=== PATIENT | female | born 1990 | race African-American/Black ===

== ENCOUNTER 2022-09-04 04:17 | Emergency (ER) | payer MEDICAID ==
--- NOTE | 2022-09-04 04:25 | ED Abdominal Pain ---
General Stated Complaint: 10 WKS & 6 DAYS PREG,PAIN ON RT SIDE Source of Information: Patient Exam Limitations: No Limitations (LAUREN CHRISTENSEN DO) History of Present Illness Date Seen by Provider: Sep 04, 2022 Time Seen by Provider: 04:25 (LAUREN CHRISTENSEN DO) Allergies and Home Medications Allergies Coded Allergies: No Known Drug Allergies (Unverified , 09/15/22) Patient Home Medication List Cephalexin (Cephalexin) 500 Mg Tablet, 500 MG PO QID Prescribed by: Kwame Rick on 10/06/22 1458 Physical Exam Vital Signs Capillary Refill : (LAUREN CHRISTENSEN DO) Height/Weight/BMI Height: '" Weight: lbs. oz. kg; BMI Method: (LAUREN CHRISTENSEN DO) Departure Departure-Patient Inst. Referrals: CHAY ROBLES MD (PCP/Family) Primary Care Physician LAUREN CHRISTENSEN DO Sep 04, 2022 04:25 Oct 07, 2022 13:32
== END 2022-09-04 04:26 | disposition left against medical advice (07) ==
LOC: ER 04:21
DX: O26.891 Other specified pregnancy related conditions, first trimester (principal); Z3A.11 11 weeks gestation of pregnancy

== ENCOUNTER 2022-09-15 10:34 | Emergency (ER) | payer MEDICAID ==
--- NOTE | 2022-09-15 10:54 | ED General ---
General Chief Complaint: General Problems/Pain Stated Complaint: BODYACHES/RT SIDE ABD PAIN/SORE THROAT 11WKS PREG Nursing Triage Note: pt to ed with c/o not feeling well for 3 days, states she just broke a fever, body aches, intermittent RLQ abd pain. states she is 11 wks Source of Information: Patient Exam Limitations: No Limitations History of Present Illness Date Seen by Provider: Sep 15, 2022 Time Seen by Provider: 10:43 Initial Comments 31-year-old female currently 11 weeks presents emerged department today for right lower abdominal pain. The abdominal pain has been present for about 2 weeks off and on. Is sharp stabbing and intermittent in nature. It las ts about 3 to 4 minutes when present and spontaneously resolves. No vaginal symptoms to include discharge odor or bleeding. She denies any urinary symptoms or changes in bowels. She is most concerned about some body aches that she has been having. She states she has had body aches for about 3 days and generally felt unwell. She thinks she had fevers yesterday that broke. She denies any runny nose cough sore throat. No known sick contacts Allergies and Home Medications Allergies Coded Allergies: No Known Drug Allergies (Unverified , 09/15/22) Patient Home Medication List Home Medication List Reviewed: Yes Review of Systems Review of Systems Constitutional: fever EENTM: no symptoms reported Respiratory: cough Cardiovascular: no symptoms reported Gastrointestinal: abdominal pain Genitourinary: no symptoms reported Expected Date of Delivery: Apr 04, 2023 Musculoskeletal: other (Body aches) Skin: no symptoms reported Psychiatric/Neurological: No Symptoms Reported Hematologic/Lymphatic: No Symptoms Reported Immunological/Allergic: no symptoms reported Past Chbsetd-Vxicwb-Ehhrzf Hx Patient Social History Tobacco Use?: No Use of E-Cig and/or Vaping dev: No Substance use?: No Alcohol Use?: No Past Medical History Expected Date of Delivery: Apr 04, 2023 Last Menstrual Period: Jun 28, 2022 Family Medical History Reviewed Nursing Family Hx No Pertinent Family Hx Physical Exam Vital Signs Vital Signs - First Documented 09/15/22 10:40 Temp 36.7 Pulse 78 Resp 20 B/P (MAP) 109/52 (71) Pulse Ox 100 Capillary Refill : Height, Weight, BMI Height: '" Weight: lbs. oz. kg; BMI Method: General Appearance: No Apparent Distress, WD/WN HEENT: Normal ENT Inspection, Pharynx Normal, Other (Right eye chronically hazy) Neck: Full Range of Motion, Normal Inspection, Non Tender, Supple Respiratory: Chest Non Tender, Lungs Clear, Normal Breath Sounds, No Accessory Muscle Use, No Respiratory Distress Cardiovascular: Regular Rate, Rhythm, No Edema, No Gallop, No JVD, No Murmur, Normal Peripheral Pulses Gastrointestinal: Normal Bowel Sounds, No Organomegaly, No Pulsatile Mass, Soft, Tenderness (Mild tenderness throughout her abdomen without any rebound or guarding. No mass organomegaly. No skin changes. Appropriate for gravid age.) Back: Normal Inspection, No Vertebral Tenderness Extremity: Normal Capillary Refill, Normal Inspection, Normal Range of Motion, Non Tender, No Calf Tenderness Neurologic/Psychiatric: Alert, Oriented x3, Normal Mood/Affect Skin: Normal Color, Warm/Dry Lymphatic: No Adenopathy Progress/Results/Core Measures Suspected Sepsis SIRS Temperature: Pulse: 78 Respiratory Rate: 20 Laboratory Tests 09/15/22 11:09: White Blood Count 8.2 Blood Pressure 109 /52 Mean: 71 Laboratory Tests 09/15/22 11:09: Creatinine 0.56L, Platelet Count 228, Total Bilirubin 0.2 Results/Orders Lab Results Laboratory Tests Test 09/15/22 11:09 09/15/22 11:46 Range/Units White Blood Count 8.2 4.3-11.0 10^3/uL Red Blood Count 4.02 3.80-5.11 10^6/uL Hemoglobin 12.7 11.5-16.0 g/dL Hematocrit 35 35-52 % Mean Corpuscular Volume 88 80-99 fL Mean Corpuscular Hemoglobin 32 25-34 pg Mean Corpuscular Hemoglobin Concent 36 32-36 g/dL Red Cell Distribution Width 13.0 10.0-14.5 % Platelet Count 228 130-400 10^3/uL Mean Platelet Volume 10.4 9.0-12.2 fL Immature Granulocyte % (Auto) 1 % Neutrophils (%) (Auto) 65 42-75 % Lymphocytes (%) (Auto) 26 12-44 % Monocytes (%) (Auto) 7 0-12 % Eosinophils (%) (Auto) 1 0-10 % Basophils (%) (Auto) 0 0-10 % Neutrophils # (Auto) 5.3 1.8-7.8 10^3/uL Lymphocytes # (Auto) 2.1 1.0-4.0 10^3/uL Monocytes # (Auto) 0.6 0.0-1.0 10^3/uL Eosinophils # (Auto) 0.1 0.0-0.3 10^3/uL Basophils # (Auto) 0.0 0.0-0.1 10^3/uL Immature Granulocyte # (Auto) 0.1 0.0-0.1 10^3/uL Sodium Level 137 135-145 MMOL/L Potassium Level 3.5 L 3.6-5.0 MMOL/L Chloride Level 105 98-107 MMOL/L Carbon Dioxide Level 19 L 21-32 MMOL/L Anion Gap 13 5-14 MMOL/L Blood Urea Nitrogen 4 L 7-18 MG/DL Creatinine 0.56 L 0.60-1.30 MG/DL Estimat Glomerular Filtration Rate 125 BUN/Creatinine Ratio 7 Glucose Level 94 70-105 MG/DL Calcium Level 8.8 8.5-10.1 MG/DL Corrected Calcium 9.1 8.5-10.1 MG/DL Total Bilirubin 0.2 0.1-1.0 MG/DL Aspartate Amino Transf (AST/SGOT) 10 5-34 U/L Alanine Aminotransferase (ALT/SGPT) 12 0-55 U/L Alkaline Phosphatase 35 L 40-136 U/L Total Protein 6.6 6.4-8.2 GM/DL Albumin 3.6 3.2-4.5 GM/DL Human Chorionic Gonadotropin, Quant [id number] H <5 MIU/ML Influenza Type A (RT-PCR) Not Detected Not Detecte Influenza Type B (RT-PCR) Not Detected Not Detecte SARS-CoV-2 RNA (RT-PCR) Not Detected Not Detecte Urine Color YELLOW Urine Clarity CLEAR Urine pH 8.0 5-9 Urine Specific [place] 1.020 1.016-1.022 Urine Protein NEGATIVE NEGATIVE Urine Glucose (UA) NEGATIVE NEGATIVE Urine Ketones NEGATIVE NEGATIVE Urine Nitrite NEGATIVE NEGATIVE Urine Bilirubin NEGATIVE NEGATIVE Urine Urobilinogen 0.2 < = 1.0 MG/DL Urine Leukocyte Esterase NEGATIVE NEGATIVE Urine RBC (Auto) NEGATIVE NEGATIVE Urine RBC NONE /HPF Urine WBC NONE /HPF Urine Squamous Epithelial Cells 2-5 /HPF Urine Crystals PRESENT H /LPF Urine Amorphous Sediment LARGE JASON PHOSPHATE H /LPF Urine Bacteria NEGATIVE /HPF Urine Casts NONE /LPF Urine Mucus NEGATIVE /LPF Urine Culture Indicated NO My Orders Orders - AMPAROLAUREN Knowles DO Comprehensive Metabolic Panel (09/15/22 10:49) Covid 19 Inhouse Test (09/15/22 10:49) Cbc With Automated Diff (09/15/22 10:49) Influenza A And B By Pcr (09/15/22 10:49) Hcg,Quantitative (09/15/22 10:49) Ua Culture If Indicated (09/15/22 10:49) Vital Signs/I&O 09/15/22 10:40 Temp 36.7 Pulse 78 Resp 20 B/P (MAP) 109/52 (71) Pulse Ox 100 Capillary Refill : Blood Pressure Mean: 71 Departure Communication (Admissions) Patient is hemodynamically stable with a nonsurgical abdominal exam. Her pain has been off and on for the last several months. She is nontoxic in appearance with normal white blood cell count, afebrile. She has a nonsurgical abdominal exam. Very low likelihood that this is appendicitis at this time. Given the fact that she is we will not pursue further imaging given the low likelihood. This does not seem to be coming from her . She has seen her OB provider and discussed current symptoms with them as well and they agree that this is likely not related. She subsequently developed diffuse body aches recently, likely viral syndrome of some sort. Advised her to continue Tylenol, increase fluids and rest. Given strict return precautions and discharged in stable condition. Questions were sought and answered. Impression Primary Impression: Abdominal pain Qualified Codes: R10.30 - Lower abdominal pain, unspecified Additional Impression: Qualified Codes: Z3A.11 - 11 weeks gestation of Disposition: 01 HOME, SELF-CARE Condition: Stable Departure-Patient Inst. Referrals: CHAY ROBLES MD (PCP/Family) Primary Care Physician Patient Instructions: Abdominal Pain, Adult ED Add. Discharge Instructions: As discussed abdominal pain appears more chronic in nature. It does not appear to be coming from her current . I believe you have a viral syndrome which is causing your diffuse body aches. Use Tylenol as needed for these types of pains. Unfortunate during there is not much else she can take this type of pain. I recommend you follow-up with your OB provider for ultrasound as previously scheduled. Return to the emergency department for any vaginal bleeding, severe pain or if your symptoms change in any way concerning to you. Follow-up with your primary doctor in the next 2 to 3 days should your symptoms persist. All discharge instructions reviewed with patient and/or family. Voiced understa nding. Work/School Note: Work Release Form Date Seen in the Emergency Department: Sep 15, 2022 Return to Work: Sep 15, 2022 Restrictions: No Restrictions LAUREN CHRISTENSEN DO Sep 15, 2022 10:54
[2022-09-15 11:22] LABS: BASOPHILS % (AUTO) 0 % (0-10); EOSINOPHILS # (AUTO) 0.1 10^3/uL (0.0-0.3); EOSINOPHILS % (AUTO) 1 % (0-10); HEMATOCRIT 35 % (35-52); HEMOGLOBIN 12.7 g/dL (11.5-16.0); LYMPHOCYTES # (AUTO) 2.1 10^3/uL (1.0-4.0); LYMPHOCYTES % (AUTO) 26 % (12-44); MEAN CORPUSCULAR HEMOGLOBIN 32 pg (25-34); MEAN CORPUSCULAR HGB CONC 36 g/dL (32-36); MEAN CORPUSCULAR VOLUME 88 fL (80-99); MEAN PLATELET VOLUME 10.4 fL (9.0-12.2); MONOCYTES # (AUTO) 0.6 10^3/uL (0.0-1.0); MONOCYTES % (AUTO) 7 % (0-12); NEUTROPHILS # (AUTO) 5.3 10^3/uL (1.8-7.8); NEUTROPHILS % (AUTO) 65 % (42-75); PLATELET COUNT 228 10^3/uL (130-400); WHITE BLOOD COUNT 8.2 10^3/uL (4.3-11.0)
[2022-09-15 11:33] LABS: ALBUMIN 3.6 GM/DL (3.2-4.5); POTASSIUM 3.5 MMOL/L (3.6-5.0)
[2022-09-15 11:34] LABS: CALCIUM 8.8 MG/DL (8.5-10.1)
[2022-09-15 11:36] LABS: TOTAL PROTEIN 6.6 GM/DL (6.4-8.2)
[2022-09-15 11:37] LABS: BILIRUBIN,TOTAL 0.2 MG/DL (0.1-1.0)
[2022-09-15 11:39] LABS: CREATININE SERUM 0.56 MG/DL (0.60-1.30)
[2022-09-15 11:54] LABS: BILIRUBIN,URINE NEGATIVE (NEGATIVE); CLARITY,URINE CLEAR; COLOR,URINE YELLOW; GLUCOSE, URINE (UA) NEGATIVE (NEGATIVE); KETONES,URINE NEGATIVE (NEGATIVE); LEUKOCYTE ESTERASE ,URINE NEGATIVE (NEGATIVE); NITRITE,URINE NEGATIVE (NEGATIVE); PROTEIN,URINE NEGATIVE (NEGATIVE)
[2022-09-15 12:01] LABS: AMORPHOUS SEDIMENT,UR LARGE AMOR PHOSPHATE /LPF; BACTERIA,URINE NEGATIVE /HPF
[2022-09-15 12:20] VITALS: BP 109/52
== END 2022-09-15 12:21 | disposition home or self-care (01) ==
LOC: EDUNIT# 10:34 → ER 10:37
DX: O26.891 Other specified pregnancy related conditions, first trimester (principal); R10.31 Right lower quadrant pain; M79.10 Myalgia, unspecified site; Z3A.11 11 weeks gestation of pregnancy; Z28.310 Unvaccinated for COVID-19; Z20.822 Contact with and (suspected) exposure to COVID-19
CPT/HCPCS: 36415; 80053; 81000; 84702; 85025; 87636

== ENCOUNTER 2022-10-06 13:12 | Emergency (ER) | payer MEDICAID ==
[~2022-10-06] VITALS: Ht 170 cm; Wt 70.0 kg
--- NOTE | 2022-10-06 13:51 | ED GU-Female ---
General Chief Complaint: OB < 20 WEEKS Stated Complaint: VAG BLEEDING 14 WKS PREG Nursing Triage Note: PT STATES 14 WEEKS AND STARTED BLEEDING FRIDAY, GETTING WORSE. G-3, P-2 Source: patient Exam Limitations: no limitations History of Present Illness Date Seen by Provider: Oct 06, 2022 Time Seen by Provider: 13:50 Initial Comments Patient is a 31-year-old G3, P2 female who presents to the emergency department for evaluation of vaginal bleeding that began in the context of being 14 weeks . Patient states she called her [employer] on and it was told to begin bedrest. She states she had no vaginal bleeding yesterday but she was up a little more than she had been cooking for her children when she felt a "gushing sensation" and noticed that she had passed some blood from her vagina. She denies any lower abdominal cramping. Denies any fever. Denies any urinary symptomology. Allergies and Home Medications Allergies Coded Allergies: No Known Drug Allergies (Unverified , 09/15/22) Patient Home Medication List Home Medication List Reviewed: Yes Cephalexin (Cephalexin) 500 Mg Tablet, 500 MG PO QID Prescribed by: Carlos Rick on 10/06/22 1458 Review of Systems Review of Systems Constitutional: no symptoms reported EENTM: no symptoms reported Respiratory: no symptoms reported Cardiovascular: no symptoms reported Gastrointestinal: no symptoms reported Genitourinary: see HPI Expected Date of Delivery: Apr 04, 2023 Musculoskeletal: no symptoms reported Skin: no symptoms reported Psychiatric/Neurological: No Symptoms Reported Endocrine: No Symptoms Reported Hematologic/Lymphatic: No Symptoms Reported Past Ffgpgxn-Yckaly-Taocol Hx Patient Social History Tobacco Use?: Yes Smoking Status: Former Smoker Substance use?: No Alcohol Use?: No Past Medical History Surgery/Hospitalization HX: ASTHMA Expected Date of Delivery: Apr 04, 2023 Family Medical History No Pertinent Family Hx Physical Exam Vital Signs Vital Signs - First Documented 10/06/22 13:20 Temp 37.1 Pulse 84 Resp 20 B/P (MAP) 136/95 (109) Pulse Ox 99 O2 Delivery Room Air Capillary Refill : Less Than 3 Seconds Height, Weight, BMI Height: '" Weight: lbs. oz. kg; 24.00 BMI Method: General Appearance: WD/WN, no apparent distress HEENT: PERRL/EOMI, normal ENT inspection, TMs normal, pharynx normal Neck: non-tender, full range of motion Cardiovascular: regular rate, rhythm Respiratory: chest non-tender, lungs clear, normal breath sounds Gastrointestinal: normal bowel sounds, non tender, soft Neurologic/Psychiatric: no motor/sensory deficits, alert, normal mood/affect, oriented x 3 Skin: normal color, warm/dry Progress/Results/Core Measures Suspected Sepsis SIRS Temperature: Pulse: 84 Respiratory Rate: 20 Blood Pressure 136 /95 Mean: 109 Results/Orders Lab Results Laboratory Tests Test 10/06/22 13:58 10/06/22 14:00 Range/Units Human Chorionic Gonadotropin, Quant [id number] H <5 MIU/ML Urine Color YELLOW Urine Clarity CLOUDY Urine pH 7.0 5-9 Urine Specific [place] 1.025 H 1.016-1.022 Urine Protein 2+ H NEGATIVE Urine Glucose (UA) NEGATIVE NEGATIVE Urine Ketones 1+ H NEGATIVE Urine Nitrite NEGATIVE NEGATIVE Urine Bilirubin 1+ H NEGATIVE Urine Urobilinogen 1.0 < = 1.0 MG/DL Urine Leukocyte Esterase TRACE H NEGATIVE Urine RBC (Auto) 3+ H NEGATIVE Urine RBC 0-2 /HPF Urine WBC 2-5 /HPF Urine Squamous Epithelial Cells 5-10 /HPF Urine Renal Epithelial Cells NONE /HPF Urine Crystals NONE /LPF Urine Bacteria LARGE H /HPF Urine Casts NONE /LPF Urine Mucus LARGE H /LPF Urine Culture Indicated YES My Orders Orders - CARLOS RICK APRN Hcg,Quantitative (10/06/22 13:40) Ua Culture If Indicated (10/06/22 13:40) Heart Tones (10/06/22 13:41) Urine Culture (10/06/22 14:00) Vital Signs/I&O 10/06/22 10/06/22 13:20 15:02 Temp 37.1 Pulse 84 80 Resp 20 16 B/P (MAP) 136/95 (109) 127/86 Pulse Ox 99 98 O2 Delivery Room Air Room Air Capillary Refill : Less Than 3 Seconds Blood Pressure Mean: 109 Progress Note : Progress Note Patient is nontoxic and well-hydrated on exam. No abdominal tenderness to palpation noted. Vital signs are reassuring. heart tones were obtained and within normal limits. Quantitative hCG within expected limits for this point of . Urinalysis notable for bacteriuria. Although patient is asymptomatic we will treat her given she is . Patient was given a prescription for antibiotics. Discussed importance of close follow-up with [employer]. She states she has an appointment with them on Friday. Return precautions for urgent symptomology discussed. Patient verbalized understanding. Departure Impression Primary Impression: Vaginal bleeding in patient at less than 20 weeks gestation Additional Impression: Asymptomatic bacteriuria during Disposition: HOME, SELF-CARE Condition: Stable Departure-Patient Inst. Decision time for Depature: 14:55 Referrals: CHAY ROBLES MD (PCP/Family) Primary Care Physician Patient Instructions: Bleeding in Early ED Scripts Cephalexin (Cephalexin) 500 Mg Tablet 500 MG PO QID for 5 Days, #20 TAB 0 Refills Prov: CARLOS RICK APRN 10/06/22 CARLOS RICK APRN Oct 06, 2022 13:51
[2022-10-06 14:17] LABS: BILIRUBIN,URINE 1+ (NEGATIVE); CLARITY,URINE CLOUDY; COLOR,URINE YELLOW; GLUCOSE, URINE (UA) NEGATIVE (NEGATIVE); KETONES,URINE 1+ (NEGATIVE); LEUKOCYTE ESTERASE ,URINE TRACE (NEGATIVE); NITRITE,URINE NEGATIVE (NEGATIVE); PROTEIN,URINE 2+ (NEGATIVE)
[2022-10-06 14:24] LABS: BACTERIA,URINE LARGE /HPF; RBC,URINE 0-2 /HPF
[2022-10-06] MEDS ORDERED: CEPH500T PO (14:58)
[2022-10-06 15:02] VITALS: BP 127/86
== END 2022-10-06 15:02 | disposition home or self-care (01) ==
LOC: EDUNIT# 13:12 → ER 13:15
DX: O20.9 Hemorrhage in early pregnancy, unspecified (principal); O26.892 Other specified pregnancy related conditions, second trimester; R82.71 Bacteriuria; Z3A.14 14 weeks gestation of pregnancy; Z87.891 Personal history of nicotine dependence; Z28.310 Unvaccinated for COVID-19
CPT/HCPCS: 36415; 81000; 84702; 87088

== ENCOUNTER 2022-12-04 10:44 | Outpatient (CLI) | payer MEDICAID ==
[~2022-12-04] VITALS: Ht 170.2 cm; Wt 80.2 kg
[~2022-12-04 10:44] MED LIST: CEPH500T PO
[2022-12-04 11:07] VITALS: BP 112/55
[2022-12-04 11:20] LABS: BILIRUBIN,URINE NEGATIVE (NEGATIVE); CLARITY,URINE CLEAR; COLOR,URINE YELLOW; GLUCOSE, URINE (UA) NEGATIVE (NEGATIVE); KETONES,URINE NEGATIVE (NEGATIVE); LEUKOCYTE ESTERASE ,URINE NEGATIVE (NEGATIVE); NITRITE,URINE NEGATIVE (NEGATIVE); PROTEIN,URINE NEGATIVE (NEGATIVE)
[2022-12-04 11:31] LABS: BACTERIA,URINE NEGATIVE /HPF; WBC,URINE RARE /HPF
[2022-12-04] MEDS ORDERED: LACTATED RINGERS 1,000 ML IV SCH (11:45)
[2022-12-04 12:20] LABS: BASOPHILS # (AUTO) 0.1 10^3/uL (0.0-0.1); BASOPHILS % (AUTO) 1 % (0-10); EOSINOPHILS # (AUTO) 0.1 10^3/uL (0.0-0.3); EOSINOPHILS % (AUTO) 1 % (0-10); HEMATOCRIT 36 % (35-52); HEMOGLOBIN 12.4 g/dL (11.5-16.0); LYMPHOCYTES # (AUTO) 2.2 10^3/uL (1.0-4.0); LYMPHOCYTES % (AUTO) 19 % (12-44); MEAN CORPUSCULAR HEMOGLOBIN 30 pg (25-34); MEAN CORPUSCULAR HGB CONC 35 g/dL (32-36); MEAN CORPUSCULAR VOLUME 88 fL (80-99); MEAN PLATELET VOLUME 10.2 fL (9.0-12.2); MONOCYTES # (AUTO) 0.7 10^3/uL (0.0-1.0); MONOCYTES % (AUTO) 6 % (0-12); NEUTROPHILS # (AUTO) 8.1 10^3/uL (1.8-7.8); NEUTROPHILS % (AUTO) 70 % (42-75); PLATELET COUNT 254 10^3/uL (130-400); WHITE BLOOD COUNT 11.6 10^3/uL (4.3-11.0)
[2022-12-04 12:33] LABS: ALBUMIN 3.4 GM/DL (3.2-4.5); BILIRUBIN,TOTAL 0.2 MG/DL (0.1-1.0); CALCIUM 8.6 MG/DL (8.5-10.1); CREATININE SERUM 0.53 MG/DL (0.60-1.30); POTASSIUM 3.7 MMOL/L (3.6-5.0); TOTAL PROTEIN 6.7 GM/DL (6.4-8.2)
[2022-12-04 14:30] VITALS: BP 119/65
[2022-12-04 14:40] VITALS: BP 119/65
[2022-12-04] MEDS ORDERED: ONDANSETRON 4 MG/2 ML (SDV) Z0FRAN IVP PRN (15:00)
--- NOTE | 2022-12-05 08:08 | Physician Query-Final Dx ---
MAMTA,12/05/22 0808: Clinic Account Progress/Dx Physician Query: Please give diagnosis Please include # weeks gestation Date of Service Dec 04, 2022 at 10:44 PRADIP PURVIS MD 12/05/22 2004: Clinic Account Progress/Dx DIAGNOSIS: Diagnosis: (1) 22 weeks gestation of Diagnosis Nausea and vomiting second trimester, suspected viral gastroenteritis. Improved with IVF, labs reassuring with exception of slightly low glucose, but patient tolerating oral and eating at time of d/c. MAMTA,NovDec 05, 2022 08:08 PRADIP PURVIS MD Dec 05, 2022 20:04
== END 2022-12-04 15:05 ==
LOC: LDRP 10:44 → WSo 10:44
PROVIDERS: ATTEND Family Medicine
DX: O21.9 Vomiting of pregnancy, unspecified (principal); Z3A.22 22 weeks gestation of pregnancy
CPT/HCPCS: 36415; 80053; 81000; 85025

== ENCOUNTER 2023-03-28 13:18 | Outpatient (CLI) | payer MEDICAID ==
[~2023-03-28] VITALS: Ht 170.2 cm; Wt 83.9 kg
[2023-03-28 13:29] VITALS: BP 127/62
[2023-03-28 14:02] LABS: BILIRUBIN,URINE NEGATIVE (NEGATIVE); CLARITY,URINE CLEAR; COLOR,URINE YELLOW; GLUCOSE, URINE (UA) NEGATIVE (NEGATIVE); KETONES,URINE NEGATIVE (NEGATIVE); LEUKOCYTE ESTERASE ,URINE NEGATIVE (NEGATIVE); NITRITE,URINE NEGATIVE (NEGATIVE); PH,URINE 7.5 (5-9); PROTEIN,URINE 2+ (NEGATIVE)
[2023-03-28 14:24] LABS: BACTERIA,URINE TRACE /HPF; RBC,URINE 0-2 /HPF; WBC,URINE 0-2 /HPF
[2023-03-28] MEDS ORDERED: ACETAMINOPHEN 500 MG TAB (TYLENOL) PO ONE (16:45)
[2023-03-28] MEDS ORDERED: ACETAMINOPHEN 500 MG TAB (TYLENOL) ONE (16:46)
[2023-03-28 16:50] VITALS: BP 122/73
== END 2023-03-28 18:40 | disposition home or self-care (01) ==
LOC: LDRP 13:18 → WSo 13:18 → LDRP 13:27 → WSo 18:40
PROVIDERS: ATTEND Family Medicine
DX: O62.9 Abnormality of forces of labor, unspecified (principal); Z3A.00 Weeks of gestation of pregnancy not specified
CPT/HCPCS: 81000

== ENCOUNTER 2023-03-29 06:12 | Inpatient (IN) | payer MEDICAID ==
[2023-03-29] VITALS (9 sets, daily range): BP systolic 117–147; BP diastolic 67–95
[~2023-03-29] VITALS: Ht 170.2 cm; Wt 83.9 kg
--- NOTE | 2023-03-29 06:39 | History & Physical-OB ---
OB - Chief Complaint & HPI Date/Time Date of Admission: Date of Admission: March 29, 2023 at 06:12 Date seen by a Provider: March 29, 2023 Time Seen by a Provider: 06:20 Chief Complaint/History OB-Reason for Admission/Chief: Onset of Labor Expected Date of Delivery: Apr 04, 2023 Gestational Age in Weeks: 39 Gestational Age in Days: 1 Admission Nurse Assessment Rev: Yes History of Labs GBS positive Other delivery occurred at home. according to mother was in the sac without rupture. Once delivered the sac ruptured and spontaneous cry. Allergies and Home Medications Allergies Coded Allergies: No Known Drug Allergies (Unverified , 09/15/22) Patient Home Medication List Home Medication List Reviewed: Yes No Active Prescriptions or Reported Meds OB - History Hx of Present Care: Yes Ultrasounds: Normal mid trimester US Obstetrical Complications: None Medical Complications: None Patient Past Medical History no chronic medical problems Social History/Family History 2nd Hand Smoke Exposure: No OB - Admission Exam Physical Exam HEENT: Moist Membranes Heart: Rhythm Normal Lungs: Clear Abdomen: Gravid OB - Assessment/Plan/Diagnosis Assessment Assessment: active labor (at 39 weeks now delivered), group B positive strep Admission Dx 1. IUP at term 39 weeks. 2. Perineum GBS positive at 36 week check Admission Status: Inpatient Order (span 2 midnights) Reason for Inpatient Admission: Delivery of placenta and further obstetrical care CHAY ROBLES MD March 29, 2023 06:39
--- NOTE | 2023-03-29 06:43 | OB Labor & Delivery Record ---
L&D History Date of Service Date of Service: March 29, 2023 History Expected Date of Delivery: Apr 04, 2023 Gestational Age in Weeks: 39 Hx : 3 Hx Para: 3 Complications Events: Routine care Operative Indications (Cesarea: N/A-Vaginal Delivery Intrapartal Events: Precipitous Labor < 3 hrs Other Complications GBS positive at 36 weeks but was unable to receive antibiotics due to rapid delivery L&D Stage1 Stage One Onset of Labor - Date: March 29, 2023 Onset of Labor - Time: 20:00 Monitors and Tracing Presentation: Vertex Signs of Distress by FHT Signs of Distress no Rupture of Membranes Amniotic Membrane Rupture Time: 05:53 Amniotic Membrane Fluid Desc.: Clear Induction/Anesthesia Medications none L&D Stage2 Stage Two Stage II Date: March 29, 2023 Stage II Time: 05:54 Monitors and Tracing Monitor Mode: None Presentation: Vertex Cord Descript/Complications Cord Vessel Description: 3 Vessels Delivery Type Delivery Method: Spontaneous Vaginal Episiotomy/Perineal Laceration Laceraction(s)/Extensions: No Condition of Infant Condition of Condition of : Living Exam: No Observed Abnormalities Resuscitation Resuscitation: N/A - Spontaneous Resp L&D Stage3 Stage Three Stage III Date: March 29, 2023 Stage III Time: 06:20 Pictocin Pitocin Administration Comment: No Pitocin required Placenta Delivery Placenta Delivery: Spontaneous Delivery Summary Summary Estimated blood loss (mL): 150 Condition of Delivery Examined: Cervix Examined Post Hemorrhage: No Intervention Required none CHAY ROBLES MD March 29, 2023 06:43
[2023-03-29] MEDS ORDERED: NALOXONE 0.4 MG/ML 1 ML (NARCAN) VIAL IV PRN (07:00)
[2023-03-29] MEDS ORDERED: BENZOCAINE/MENTHOL (DERMOPLAST) 56 ML CAN TP PRN (07:00)
[2023-03-29] MEDS ORDERED: TETANUS,DIPTH,PERTUSS P/F (BOOSTRIX) 0.5 ML VIAL IM ONE (07:00)
[2023-03-29] MEDS ORDERED: MEASLES,MUMPS,RUBELLA 1 EA INJ SQ ONE (07:00)
[2023-03-29] MEDS ORDERED: WITCH HAZEL(TUCKS) 40 EA JAR TOP PRN (07:00)
[2023-03-29] MEDS: IBUPROFEN 600 MG (MOTRIN) TAB PO SCH ×3 (07:24→23:03)
[2023-03-29] MEDS: ACETAMINOPHEN 500 MG TAB (TYLENOL) PO SCH ×3 (07:24→23:02)
[2023-03-29 08:09] LABS: BASOPHILS % (AUTO) 0 % (0-10); EOSINOPHILS % (AUTO) 0 % (0-10); HEMATOCRIT 38 % (35-52); HEMOGLOBIN 13.1 g/dL (11.5-16.0); LYMPHOCYTES # (AUTO) 1.3 10^3/uL (1.0-4.0); LYMPHOCYTES % (AUTO) 7 % (12-44); MEAN CORPUSCULAR HEMOGLOBIN 29 pg (25-34); MEAN CORPUSCULAR HGB CONC 34 g/dL (32-36); MEAN CORPUSCULAR VOLUME 83 fL (80-99); MEAN PLATELET VOLUME 9.7 fL (9.0-12.2); MONOCYTES # (AUTO) 0.7 10^3/uL (0.0-1.0); MONOCYTES % (AUTO) 4 % (0-12); NEUTROPHILS # (AUTO) 16.5 10^3/uL (1.8-7.8); NEUTROPHILS % (AUTO) 88 % (42-75); PLATELET COUNT 290 10^3/uL (130-400); WHITE BLOOD COUNT 18.8 10^3/uL (4.3-11.0)
[2023-03-29] MEDS ORDERED: CATHETER FLUSH 10 ML SYR IV SCH (14:00)
[2023-03-29] MEDS: DOCUSATE SODIUM 100 MG (COLACE) CAP PO SCH ×2 (22:57→23:02)
[2023-03-30] VITALS: BP 112/78
[2023-03-30 05:00] VITALS: BP 108/70
[2023-03-30] MEDS: ACETAMINOPHEN 500 MG TAB (TYLENOL) PO SCH ×3 (05:02→18:01)
[2023-03-30] MEDS: IBUPROFEN 600 MG (MOTRIN) TAB PO SCH ×3 (05:02→18:01)
[2023-03-30 06:33] LABS: BASOPHILS # (AUTO) 0.1 10^3/uL (0.0-0.1); BASOPHILS % (AUTO) 0 % (0-10); EOSINOPHILS # (AUTO) 0.1 10^3/uL (0.0-0.3); EOSINOPHILS % (AUTO) 1 % (0-10); HEMATOCRIT 37 % (35-52); HEMOGLOBIN 12.6 g/dL (11.5-16.0); LYMPHOCYTES # (AUTO) 3.5 10^3/uL (1.0-4.0); LYMPHOCYTES % (AUTO) 22 % (12-44); MEAN CORPUSCULAR HEMOGLOBIN 29 pg (25-34); MEAN CORPUSCULAR HGB CONC 34 g/dL (32-36); MEAN CORPUSCULAR VOLUME 84 fL (80-99); MEAN PLATELET VOLUME 9.7 fL (9.0-12.2); MONOCYTES # (AUTO) 1.1 10^3/uL (0.0-1.0); MONOCYTES % (AUTO) 7 % (0-12); NEUTROPHILS % (AUTO) 68 % (42-75); PLATELET COUNT 307 10^3/uL (130-400); WHITE BLOOD COUNT 16.1 10^3/uL (4.3-11.0)
--- NOTE | 2023-03-30 09:42 | Discharge Summary ---
Diagnosis/Chief Complaint Date of Admission March 29, 2023 at 06:12 Date of Discharge March 30, 2023 Admission Diagnosis Admission Diagnosis 1. Intrauterine at 39 weeks gestation 2. Peroneal GBS positive at 36 weeks Discharge Diagnosis 1. Intrauterine at 39 weeks gestation 2. Peroneal GBS positive at 36 weeks Chief Complaint/HPI Chief Complaint/HPI 32-year-old 3 now term 3 who presents to women's services after rapid delivery. She had presented yesterday in the afternoon but was jerica every 6-8 minutes without cervical change. At that time she was okay going home and returning if labor increased. She was at 39 weeks 2 days gestation. GBS was positive on perineum check at 36 weeks. Discharge Summary-OBS Procedures 1. Spontaneous vaginal delivery -- occurred precipitous prior to making it to hospital Discharge Physical Examination Allergies: Coded Allergies: No Known Drug Allergies (Unverified , 09/15/22) Vitals & I&Os Vital Sign - Last 12Hours Date Time Temp Pulse Resp B/P (MAP) Pulse Ox O2 Delivery O2 Flow Rate FiO2 03/30/23 05:00 36.2 74 18 108/70 (83) 98 Room Air General Appearance: No Acute Distress Respiratory: Clear to Auscultation Cardiovascular: Regular Rate Abdominal: Soft (With uterus firm) Hospital Course Was the Problem List Reviewed?: Yes patient was admitted in the morning of March 29, 2023. Upon arrival was in mother's arms. The placenta delivered shortly after I arrived. Inspection of the perineum revealed no perineal lacerations or cervical lacerations. Minimal bleeding noted. Following delivery she underwent routine care orders. She had no complications during the remainder of hospital stay. Her hemoglobin in the morning of March 30 was 12.6 compared to admission of 13.1. She is officially discharged on March 30 but will room in since her daughter will stay an additional 24 hours. She will follow up with myself at [facility] in 6 weeks. Labs Laboratory Tests 03/30/23 06:06: White Blood Count 16.1H, Red Blood Count 4.40, Hemoglobin 12.6, Hematocrit 37, Mean Corpuscular Volume 84, Mean Corpuscular Hemoglobin 29, Mean Corpuscular Hemoglobin Concent 34, Red Cell Distribution Width 14.7H, Platelet Count 307, Mean Platelet Volume 9.7, Immature Granulocyte % (Auto) 2, Neutrophils (%) (Auto) 68, Lymphocytes (%) (Auto) 22, Monocytes (%) (Auto) 7, Eosinophils (%) (Auto) 1, Basophils (%) (Auto) 0, Neutrophils # (Auto) 11.0H, Lymphocytes # (Auto) 3.5, Monocytes # (Auto) 1.1H, Eosinophils # (Auto) 0.1, Basophils # (Auto) 0.1, Immature Granulocyte # (Auto) 0.4H Discharge Instructions to patient/family Please see electronic discharge instructions given to patient. Discharge Medications Reviewed and agree with Discharge Medication list on patient's Discharge Instruction sheet CHAY ROBLES MD March 30, 2023 09:42
--- NOTE | 2023-03-30 09:44 | Discharge Inst-Women's Service ---
Discharge Inst-Women's Serv Depart Medication/Instructions Instructions May take [id number] ibuprofen 2 or 3 tablets every 6 hours if needed for cramps. Problems Reviewed?: Yes Consults/Follow Up Additional Follow Up: Yes (Dr. Robles in 6 weeks at [facility]) Activity Driving Instructions: No Driving for 1 Week Nothing Inside Vagina: No [facility] (For 6 weeks) Diet Discharge Diet: Regular Diet Return to The Hospital For: As below Symptoms to Report to : Bleeding Excessive, Fever Over 101 Degrees F, Vagina l Discharge Foul For Any Problems or Questions: Contact Your Physician CHAY ROBLES MD March 30, 2023 09:44
[2023-03-30 11:54] VITALS: BP 124/73
[2023-03-30] MEDS: DOCUSATE SODIUM 100 MG (COLACE) CAP PO SCH (11:55)
[2023-03-30 18:05] VITALS: BP 120/55
== END 2023-03-30 18:10 | disposition home or self-care (01) | DRG 776 ==
LOC: LDRP 06:12
PROVIDERS: ADMIT Family Medicine; ATTEND Family Medicine
DX: O99.825 Streptococcus B carrier state complicating the puerperium (principal)
CPT/HCPCS: 36415; 85025; 86780; 86850; 86900; 86901